=== PATIENT | female | born 1995 | race Caucasian/White ===

== ENCOUNTER 2023-12-11 10:06 | Inpatient (IN) | payer OTHER ==
[2023-12-11] MEDS: Misoprostol 50 MCG (1/2 of 100 MCG) Tab ONE (11:47)
[2023-12-11 11:53] LABS: MEAN CORPUSCULAR HEMOGLOBIN 29.5 pg (27.0-34.0); MEAN CORPUSCULAR HGB CONC 33.3 g/dL (33.0-35.0); MEAN CORPUSCULAR VOLUME 88.4 fL (80-100); RED BLOOD CELL COUNT 4.75 10^6/uL (4.2-5.4); WHITE BLOOD CELL COUNT,WBC 16.8 10^3/uL (5.0-10.0)
[2023-12-11] MEDS: Misoprostol 100 MCG Tab PO ONE (12:01)
[2023-12-11] MEDS ORDERED: Acetaminophen 325 MG Tab PO PRN (12:43)
[2023-12-11] MEDS ORDERED: Tranexamic Acid 1,000 MG in Sodium Chloride 0.9% 100 ML IV PRN (12:47)
[2023-12-11] MEDS ORDERED: Misoprostol 400 MCG (4 X 100 MCG TAB) RECTAL PRN (12:47)
[2023-12-11] MEDS ORDERED: Carboprost Tromethamine 250 MCG/1 ML Amp IM PRN (12:47)
[2023-12-11] MEDS ORDERED: Methylergonovine 0.2 MG/1 ML Amp IM PRN (12:47)
[2023-12-11] MEDS: Lactated Ringers 1,000 ML IV ONE (13:37)
[2023-12-11] MEDS ORDERED: fentaNYL 100 MCG/2 ML SDV ONE (13:49)
[2023-12-11] MEDS ORDERED: Bupivacaine 0.25% 10 ML SDV ONE (13:49)
[2023-12-11] MEDS: Ondansetron 4 MG/2 ML SDV IVPUSH PRN (13:50)
[2023-12-11] MEDS: Lactated Ringers 1,000 ML IV SCH (14:13)
[2023-12-11] MEDS ORDERED: Phenylephrine HCl In 0.9% NaCl 1 MG/10 ML Syringe IVPUSH PRN (14:13)
[2023-12-11] MEDS ORDERED: Ropivacaine 200 MG in Premix Bag 1 BAG EPIDUR SCH (14:15)
[2023-12-11] MEDS: ePHEDrine 50 MG/ML SDV IVPUSH PRN (15:13)
[2023-12-11] MEDS: Oxytocin/Normal Saline 30 UNIT/500 ML BAG IV SCH (19:42)
[2023-12-11] MEDS ORDERED: Sodium Chloride 0.9% 10 ML Syringe FLUSH PRN (20:47)
[2023-12-11] MEDS ORDERED: Simethicone 80 MG Tab.Chew PO PRN (20:47)
[2023-12-11] MEDS ORDERED: Famotidine 20 MG Tab PO PRN (20:47)
[2023-12-11] MEDS ORDERED: Oxytocin 10 Units/1 ML SDV IM PRN (20:47)
[2023-12-11] MEDS: Witch Hazel Medicated Pads 100/Jar TOP PRN (21:29)
[2023-12-11] MEDS: Lidocaine 1% 30 ML SDV INJECT ONE (21:29)
[2023-12-11] MEDS: Docusate Sodium 100 MG Cap PO PRN (21:29)
[2023-12-11] MEDS: Ibuprofen 800 MG Tab PO PRN (21:30)
[2023-12-11] MEDS: Benzocaine/Menthol 20%-0.5% Spray 78 GM Cannister TOP PRN (21:30)
[2023-12-12] MEDS: Prenatal Multivitamin with Calcium/Folic Acid/Iron Tab PO SCH (08:35)
[2023-12-12] MEDS: Acetaminophen 325 MG Tab PO PRN (14:21)
[2023-12-12 21:07] LABS: HEMATOCRIT 34.9 % (37.0-47.0); HEMOGLOBIN 11.6 g/dL (12.0-16.0); MEAN CORPUSCULAR HEMOGLOBIN 29.8 pg (27.0-34.0); MEAN CORPUSCULAR HGB CONC 33.2 g/dL (33.0-35.0); MEAN CORPUSCULAR VOLUME 89.7 fL (80-100); RED BLOOD CELL COUNT 3.89 10^6/uL (4.2-5.4); WHITE BLOOD CELL COUNT,WBC 18.3 10^3/uL (5.0-10.0)
== END 2023-12-13 10:45 | disposition home or self-care (01) | DRG 807 ==
LOC: DL.OBCHECK 10:06 → DL.OB 11:02 → OBSVTOIN 20:08 → DL.OB 20:08
PROVIDERS: ADMIT Family Medicine; ATTEND Family Medicine
PROC: 10E0XZZ Delivery of Products of Conception, External Approach (ICD-10-PCS; principal; 2023-12-11)
PROC: 0HQ9XZZ Repair Perineum Skin, External Approach (ICD-10-PCS; 2023-12-11)
PROC: 3E0R3BZ Introduction of Anesthetic Agent into Spinal Canal, Percutaneous Approach (ICD-10-PCS; 2023-12-11)
PROC: 00HU33Z Insertion of Infusion Device into Spinal Canal, Percutaneous Approach (ICD-10-PCS; 2023-12-11)
DX: O42.02 Full-term premature rupture of membranes, onset of labor within 24 hours of rupture (principal); Z37.0 Single live birth; O70.1 Second degree perineal laceration during delivery; Z3A.37 37 weeks gestation of pregnancy
CPT/HCPCS: 36415; 51701; 51702; 59025; 59409; 59414; 84112; 85027; A9270-GY; C1729; J2405; J2590; J3490; J7120